=== PATIENT | female | born 1995 | race Caucasian/White ===

== ENCOUNTER 2022-08-07 09:11 | Emergency (ER) | payer MEDICAID ==
[~2022-08-07] VITALS: Ht 157.5 cm; Wt 81.6 kg
[2022-08-07 09:28] VITALS: BP_SYST 120
--- NOTE | 2022-08-07 09:37 | NUR ---
PT PLACED IN LOBBY, STABLE TO WAIT FOR ER MD.
--- NOTE | 2022-08-07 09:43 | NUR ---
covid/flu swab collected and sent to lab
--- NOTE | 2022-08-07 10:51 | NUR ---
DR QUIROZ IN TRAIFE FOR EXAM
[2022-08-07 11:03] VITALS: BP_SYST 120
[2022-08-07] MEDS ORDERED: IBUP-1969 PO (11:03)
[2022-08-07] MEDS ORDERED: ONDA-8 TL (11:03)
[2022-08-07] MEDS ORDERED: BENZ100C92 PO (11:03)
--- NOTE | 2022-08-07 11:33 | NUR ---
Patient given written and verbal discharge instructions and verbalizes understanding. ER MD discussed with patient the results and treatment provided. Patient in stable condition. ID arm band removed. IV catheter removed intact and dressing applied, no active bleeding. Rx of BENZONATATE, IBUPROFEN, MZOFRAN given. Patient educated on pain management and to follow up with PMD. Pain Scale . Opportunity for questions provided and answered. Medication side effect fact sheet provided.
== END 2022-08-07 11:33 | disposition home or self-care (01) ==
LOC: SED 09:11
DX: J06.9 Acute upper respiratory infection, unspecified (principal); B34.9 Viral infection, unspecified; R11.2 Nausea with vomiting, unspecified; R05.9 Cough, unspecified; R09.81 Nasal congestion; Z79.899 Other long term (current) drug therapy; Z20.822 Contact with and (suspected) exposure to COVID-19
CPT/HCPCS: 36415; 99283

== ENCOUNTER 2022-09-14 16:20 | Emergency (ER) | payer MEDICAID ==
[~2022-09-14] VITALS: Ht 157.5 cm; Wt 77.1 kg
[~2022-09-14 16:20] MED LIST: BENZ100C92 PO; IBUP-1969 PO; ONDA-8 TL
[2022-09-14 17:25] VITALS: BP_SYST 120
--- NOTE | 2022-09-14 21:25 | NUR ---
X-ray of rt fingers done as ordered
--- NOTE | 2022-09-14 21:26 | NUR ---
ER Dr. Murcia examining patient.
[2022-09-14] MEDS ORDERED: HYDROcodone/ACETAMIN 5-325 MG TAB (NORCO/ VICODIN) PO ONE (21:45)
[2022-09-14 22:25] VITALS: BP_SYST 128
--- NOTE | 2022-09-14 22:25 | NUR ---
Patient given written and verbal discharge instructions and verbalizes understanding. ER MD discussed with patient the results and treatment provided. Patient in stable condition. No Rx given. Patient educated on pain management and to follow up with PMD. Opportunity for questions provided and answered. Medication side effect fact sheet provided.
== END 2022-09-14 22:25 | disposition home or self-care (01) ==
LOC: SED 16:20
DX: S62.514A Nondisplaced fracture of proximal phalanx of right thumb, initial encounter for closed fracture (principal); Z88.1 Allergy status to other antibiotic agents; Z88.2 Allergy status to sulfonamides; Z79.899 Other long term (current) drug therapy; W20.8XXA Other cause of strike by thrown, projected or falling object, initial encounter; Y93.89 Activity, other specified; Y92.89 Other specified places as the place of occurrence of the external cause; Y99.8 Other external cause status
CPT/HCPCS: 73140-TC; 99283

== ENCOUNTER 2023-03-19 19:00 | Emergency (ER) | payer MEDICAID ==
[~2023-03-19] VITALS: Ht 157.5 cm; Wt 86.2 kg
[2023-03-19 19:38] VITALS: BP_SYST 124
[2023-03-19] MEDS ORDERED: ACET-2634 PO (21:18)
[2023-03-19] MEDS ORDERED: IBUP-1969 PO (21:18)
[2023-03-19] MEDS ORDERED: IBUPROFEN 600 MG TABLET PO ONE (21:30)
[2023-03-19] MEDS ORDERED: ACETAMINOPHEN 500 MG TABLET PO ONE (21:30)
[2023-03-19 21:35] VITALS: BP_SYST 124
== END 2023-03-19 21:35 | disposition home or self-care (01) ==
LOC: SED 19:00
DX: S93.402A Sprain of unspecified ligament of left ankle, initial encounter (principal); Z88.1 Allergy status to other antibiotic agents; Z88.2 Allergy status to sulfonamides; Z79.899 Other long term (current) drug therapy; W18.42XA Slipping, tripping and stumbling without falling due to stepping into hole or opening, initial encounter; Y93.89 Activity, other specified; Y92.89 Other specified places as the place of occurrence of the external cause; Y99.8 Other external cause status
CPT/HCPCS: 99284